=== PATIENT | female | born 1985 | race Caucasian/White ===

== ENCOUNTER 2020-06-17 23:19 | Emergency (ER) | payer BC, SELFPAY ==
--- NOTE | ~2020-06-17 | CT_ITS ---
EXAMINATION: CT brain wo con EXAM DATE: 06/18/2020 02:14 INDICATION: Diplopia. TECHNIQUE: Spiral CT of the head was performed without contrast. Axial, coronal and sagittal images were reviewed. The dose-length product (DLP) for this examination was 681.00 mGy-cm. The exposure w as tailored according to patient size, and iterative reconstruction (ASIR) was used as additional dos e reduction technique. There is no prior study for comparison. FINDINGS: There is no acute intraparenchymal hemorrhage. No evidence of intraparenchymal brain mass lesion. No evidence of acute infarction. There is no mass effect or midline shift. The ventricles are normal in size. There are no extra-axial collections. There are no acute calvarial fractures. T he orbits are unremarkable. Soft tissue is unremarkable. The visualized sinuses and mastoid air ranulfo ls are well aerated. IMPRESSION: 1. Normal head CT examination. Reviewed, dictated and finalized at location A.
[2020-06-17 23:21] VITALS: BP 175/113; PULSE 120; RESP 16; TEMP 36.6; O2SAT 98
[2020-06-18] VITALS (10 sets, daily range): BP systolic 134–161; BP diastolic 82–111; PULSE 82–90; RESP 16–18; O2SAT 98–100
--- NOTE | 2020-06-18 00:14 | PC.NURSE ---
Pt reports that her DrBertin has been watching her BP. Pt reports hx of HTN without medication.
--- NOTE | 2020-06-18 00:22 | ECG_ITS ---
Measurements Intervals [place] Rate: 86 P: -12 DE: 159 QRS: -21 QRSD: 113 T: -4 QT: 380 QTc: 456 Interpretive Statements SINUS RHYTHM INCOMPLETE RIGHT BUNDLE BRANCH BLOCK BORDERLINE R WAVE PROGRESSION, ANTERIOR LEADS BORDERLINE T WAVE ABNORMALITY- INFERIOR LEADS BASELINE ARTIFACT- I, II, III, AVR, AVL, AVF, V1-V6 BORDERLINE ECG Electronically Signed On 06-18-2020 8:06:30 CDT by Quinton Tai D.O.
--- NOTE | 2020-06-18 00:36 | ED.RECABL ---
HPI - Recheck/Abnormal Lab/Rx General Chief Complaint: Recheck/Abnormal Lab/Rx Stated Complaint: HTN/ double vision/ confusion Time Seen by Provider: 06/18/20 00:36 History of Present Illness HPI narrative: 34 yo female w/ h/o anxiety and depression presents to the ED for not feeling right. She has reportedly not been feeling quite right for a few days. She reports not sleeping well, not eating or drinking enough, occasionally feeling confused or dizzy. She also reports urinary frequency. Tonight while at work her symptoms became worse and she also began having intermittent double vision. On arrival it was noted that her BP is high. She says that she likely has hypertension, but she has not been treated for it and does not have a PCP. Related Data Home Medications Medication Instructions Recorded Confirmed alprazolam [Xanax] 0.5 mg PO BID PRN 06/17/20 06/17/20 fluoxetine [Prozac] 60 mg PO DAILY 06/17/20 06/17/20 zolpidem [Ambien] 10 mg PO HS PRN 06/17/20 06/17/20 Allergies Allergy/AdvReac Type Severity Reaction Status Date / Time Sulfa (Sulfonamide Allergy Hives Verified 06/17/20 23:24 Antibiotics) Review of Systems Review of Systems: All systems reviewed & are unremarkable except as noted in HPI and below Constitutional: Constitutional: Denies chills, Denies fever(s) and Denies weakness Eyes: Eyes: Reports as per HPI and Denies photophobia ENT: Reports dizziness Cardiovascular: Cardiovascular: Denies chest pain Respiratory: Respiratory: Denies dyspnea Gastrointestinal: Gastrointestinal: Denies diarrhea, Reports nausea and Denies vomiting Genitourinary: Genitourinary: Denies hematuria, Reports nocturia, Denies dysuria and Denies flank pain Musculoskeletal: Musculoskeletal: Reports no additional musculoskeletal complaints Neurologic: Denies syncope, Reports headache(s) and Denies weakness Psychiatric: Psychiatric: Reports anxiety and Reports depression [facility] Past Medical History Medical History (Updated 06/27/20 @ 12:17 by Brian Doss MD) Anxiety Depression Social History Social History (Updated 06/27/20 @ 12:17 by Brian Doss MD) Smoking status: Never smoker Exam Const: General: healthy appearing, no acute distress and alert Orientation/consciousness: patient oriented x3 HENMT: Head: normal to inspection Ears: external ears normal, TM's normal bilaterally and EAC's normal Face and sinus: normal facial exam Mouth: Yes moist mucous membranes Eyes: Conjunctivae: conjunctivae normal Pupils: Equal, round and reactive pupils present EOM: EOMs intact bilaterally Neck: Neck: normal visual inspection Resp: Effort & Inspection: normal respiratory effort Auscultation: clear to auscultation bilaterally Cardio: Rate: regular rate Rhythm: regular rhythm GI: GI Palp: Yes Soft to palpation and No Tenderness to palpation present (GI) Skin: General skin exam: normal color Neuro: General: patient oriented x3, moves all extremities, no focal motor deficits and CN's II-XI intact bilaterally Cranial nerves: Yes Nystagmus not present Speech: normal speech Gait exam (Neuro): Normal gait present Extrem: General: normal to inspection and no edema Psych: Affect: Anxious affect present Course Course Emergency Course: Exam benign. Symptoms are fairly nonspecific. Feeling better after fluids. Blood pressure improving spontaneously. I encouraged her strongly to obtain a PCP and follow-up for any ongoing issues. Vital Signs Vital signs: Vital Signs Temperature 36.6 C 06/17/20 23:21 Pulse Rate 120 H 06/17/20 23:21 Respiratory Rate 16 06/17/20 23:21 Blood Pressure 175/113 H 06/17/20 23:21 Pulse Oximetry 98 06/17/20 23:21 Temperature 36.6 C 06/17/20 23:21 Pulse Rate 84 06/18/20 04:21 Respiratory Rate 16 06/18/20 04:21 Blood Pressure 146/91 H 06/18/20 04:21 Pulse Oximetry 99 06/18/20 04:21 MDM - Recheck/Abnormal Lab/Rx Differential
[2020-06-18 00:51] LABS: Glucose Point of Care 106 (65-105)
[2020-06-18 00:55] LABS: Alanine Aminotransferase 15 U/L (4-35); Albumin Level 4.2 g/dL (3.5-5.1); Alkaline Phosphatase 65 U/L (38-126); Anion Gap 4 mmol/L (8-16); Aspartate Amino Transferase 25 U/L (14-36); Bilirubin,Total 0.2 mg/dL (0.2-1.3); Blood Urea Nitrogen 13 mg/dL (7-17); Calcium 9.1 mg/dL (8.4-10.2); Carbon Dioxide 30 mmol/L (22-30); Chloride 105 mmol/L (98-107); Estimated CRCL calculation 134 ml/min; Estimated Glomerular Filt Rate > 60; Glucose 100 mg/dL (65-105); Potassium 3.8 mmol/L (3.4-5.0); Sodium 139 mmol/L (137-145)
[2020-06-18 00:57] LABS: Basophils Percent Auto 0.3 % (0.2-1.2); Eosinophils Absolute Auto 0.1 K/mm3 (0-0.3); Eosinophils Percent Auto 1.6 % (0-4.4); Hematocrit 42.2 % (37.0-47.0); Hemoglobin 13.6 g/dL (12.0-15.0); Immature Granulocyte Absolute 0.02 K/mm3 (0.00-0.031); Immature Granulocyte Percent A 0.3 % (0-0.5); Lymphocytes Absolute Auto 2.34 K/mm3 (0.9-3.2); Lymphocytes Percent Auto 33.9 % (18.3-44.2); Mean Corpuscular HGB Conc 32.2 g/dl (32-36); Mean Corpuscular Hemoglobin 28.6 pg (26-34); Mean Corpuscular Volume 88.8 fl (80-100); Monocytes Absolute Auto 0.5 K/mm3 (0.1-0.6); Monocytes Percent Auto 6.5 % (2.6-8.5); Neutrophils Percent Auto 57.4 % (45.5-73.1); Platelet Count Result 303 k/mm3 (150-375); Red Blood Count 4.75 M/mm3 (4.2-5.4); Red Cell Distribution Width 12.4 % (11.5-14.5); White Blood Count 6.9 K/mm3 (4.5-10.0)
[2020-06-18 01:11] LABS: Add Urine Microscopic? NO; Appearance Urine Clear (Clear); Bilirubin Urine Negative (Negative); Blood Urine Negative (Negative); Color Urine Yellow (Yellow); Glucose Urine UA Negative (Negative); Ketones Urine Negative (Negative); Leukocyte Esterase Ur Negative LEU/UL (Negative); Nitrate Urine Negative (Negative); Protein Urine Negative (Negative); Specific Grav Ur 1.017 (1.001-1.035); Urobilinogen Urine Negative mg/dL (<2.0)
[2020-06-18 01:13] LABS: RBC Urine 0-2 /hpf (0-2); WBC Urine None seen /hpf
[2020-06-18 01:14] LABS: Squamous Epithelial Cell Urine Few /hpf (Few)
[2020-06-18] MEDS: SODIUM CHLORIDE 0.9% IV 1,000 ML 999 ML IV CONT (01:14)
[2020-06-18] MEDS: METOCLOPRAMIDE HCL INJ 10 MG/2 ML VIAL IV PUSH (03:26)
[2020-06-18] MEDS: KETOROLAC 30 MG/ML VIAL (*BKC) IV PUSH (03:26)
--- NOTE | 2020-06-18 03:29 | PC.NURSE ---
Pt reports feeling much better, but still has a pounding in her head and mild double vision.
== END 2020-06-18 04:21 | disposition home or self-care (01) ==
PROVIDERS: Emergency Medicine; Emergency Provider Emergency Medicine
DX: H53.2 Diplopia (principal); R51.9 Headache, unspecified; F41.9 Anxiety disorder, unspecified; F32.9 Major depressive disorder, single episode, unspecified; I45.10 Unspecified right bundle-branch block; R94.31 Abnormal electrocardiogram [ECG] [EKG]
CPT/HCPCS: 36415; 70450; 80053; 81003; 81025; 82948; 85025; 93005; 96361; 96374; 96375; 99284; J1885; J2765; J7030